=== PATIENT | female | born 1970 | race Caucasian/White ===

== ENCOUNTER → 2020-08-23 | Day surgery (SDC) | payer MEDICARE, OTHER ==
[~2020-08-23] MED LIST: 3IN1 COMMODE; EFFEXOR-XR 75 M75 MG PO; JARDIANCE; NORCO 5-325 TA1 EACH PO; OMEPRAZOLE20 M1 PO; OZEMPIC0.25 MG/0. IM; TRAZODONE 100M100 MG PO; TRESIBA FL100 UNIT/1 IJ; VENTOLIN HFA18 GM INH; VITAMIN D3 COM1 EACH PO
[2020-08-23 06:15] LABS: HCG (URINE) SCREEN NEGATIVE (NEGATIVE)
[2020-08-23 07:02] LABS: HCT 43.4 % (37.0-47.0); HGB 15.2 g/dl (12.5-16.0); MCH 30.3 pg (25.0-31.0); MCV 86.6 fL (78.0-100.0); MPV 10.8 fL (6.0-9.5); RBC 5.01 M/uL (4.20-5.40); RDW 13.2 % (11.5-14.0); WBC 3.2 K/uL (4.0-10.5)
[2020-08-23 07:31] LABS: BUN/CREAT RATIO (CALC) 15.1 RATIO; CREATININE 0.73 mg/dL (0.51-0.95); POTASSIUM 4.5 mmol/L (3.5-5.1)
== END | disposition home or self-care (01) ==
LOC: FAS 05:43
PROVIDERS: Anesthesiology; Legal Medicine; Nurse Anesthetist, Certified Registered
DX: G56.21 Lesion of ulnar nerve, right upper limb (principal); G56.01 Carpal tunnel syndrome, right upper limb; M65.341 Trigger finger, right ring finger; K21.9 Gastro-esophageal reflux disease without esophagitis; E11.9 Type 2 diabetes mellitus without complications; Z20.822 Contact with and (suspected) exposure to COVID-19; Z88.8 Allergy status to other drugs, medicaments and biological substances; Z79.84 Long term (current) use of oral hypoglycemic drugs; Z98.890 Other specified postprocedural states; Z90.710 Acquired absence of both cervix and uterus
CPT/HCPCS: 36415; 80048; 84703; J0690; J1100; J1170; J1885; J2250; J2405; J2550; J2704; J2795; J3010; J7120

== ENCOUNTER 2020-08-25 20:25 | Emergency (ER) | payer MEDICARE, OTHER | END 2020-08-26 00:15 | disposition home or self-care (01) | LOC: FER 20:25 | DX: M79.631 Pain in right forearm (principal); R20.2 Paresthesia of skin; E11.9 Type 2 diabetes mellitus without complications; Z98.890 Other specified postprocedural states; Z88.8 Allergy status to other drugs, medicaments and biological substances; Z88.4 Allergy status to anesthetic agent | CPT/HCPCS: 73090; 96372; J1170 ==